=== PATIENT | female | born 2000 | race Hispanic/Latino ===

== ENCOUNTER 2022-03-20 22:30 | Emergency (ER) | payer OTHER ==
[~2022-03-20] VITALS: Ht 149.9 cm; Wt 59.4 kg
[2022-03-20] MEDS ORDERED: AMOX TR-K CLV1 EAC2 PO (23:53)
[2022-03-21] MEDS ORDERED: Clindamycin INJ 150 MG/ML 600 MG Vial IM ONE
[2022-03-21] MEDS ORDERED: Clindamycin INJ 150 MG/ML 600 MG Vial ONE (00:03)
[2022-03-21] MEDS ORDERED: BACITRACIN ZINC 0.9GM TP ONE (00:06)
[2022-03-21 00:20] VITALS: BP 123/76
== END 2022-03-21 00:20 | disposition home or self-care (01) ==
LOC: FSED 22:40
DX: L08.9 Local infection of the skin and subcutaneous tissue, unspecified (principal); S81.851D Open bite, right lower leg, subsequent encounter; W54.0XXD Bitten by dog, subsequent encounter; F41.9 Anxiety disorder, unspecified
CPT/HCPCS: 96372; 99283